=== PATIENT | male | born 1975 | race Caucasian/White ===

== ENCOUNTER 2024-02-14 20:52 | Emergency (ER) | payer MEDICAID, SELFPAY ==
[2024-02-14 20:56] VITALS: BP 162/59; PULSE 65; RESP 18; TEMP 36.6; O2SAT 99; BMI 25.1
--- NOTE | 2024-02-14 21:04 | ECG_ITS ---
[facility]14 Pat Name: Gil Sutton Department: Room: Gender: Male Floor Person: : 1975 Requested By: Gil Goodrich Order Number: [id number] Niya MD: Gene Garces M.D. Measurements Intervals [place] Rate: 63 P: 54 ID: [id number] QRS: 81 QRSD: 92 T: 67 QT: 407 QTc: 418 Interpretive Statements SINUS RHYTHM Non diagnostic ST changes No previous ECG available for comparison Electronically Signed On 02-14-2024 23:04:29 CDT by Gene Garces M.D. [email or web address]
--- NOTE | 2024-02-14 21:04 | XRR_ITS ---
PROCEDURE INFORMATION: Exam: XR Chest Exam date and time: 02/14/2024 9:30 PM Age: 48 years old Clinical indication: Dyspnea TECHNIQUE: Imaging protocol: Radiologic exam of the chest. Views: 1 view. COMPARISON: No relevant prior studies available. FINDINGS: Lungs: Unremarkable. No consolidation. Pleural spaces: Unremarkable. No pleural effusion. No pneumothorax. Heart/Mediastinum: Unremarkable. No cardiomegaly. Bones/joints: Unremarkable. XR/XR chest 1V portable [id number] IMPRESSION: No acute findings.
[2024-02-14 21:12] LABS: Basophils # 0.1 10^3/uL (0.0-0.1); Basophils % 0.8 %; Eosinophils # 0.1 10^3/uL (0.0-0.8); Eosinophils % 1.8 %; Hematocrit 46.1 % (37-53); Lymphocytes # 2.1 10^3/uL (0.8-4.8); Mean Corpuscular HGB Conc 34.3 g/dL (30-55); Mean Corpuscular Hemoglobin 31.9 pg (27-33); Mean Corpuscular Volume 93.1 fl (82-101); Mean Platelet Volume 8.9 fL (7.4-10.4); Monocytes # 0.5 10^3/uL (0.2-0.9); Monocytes % 6.4 %; Neutrophils # 4.38 10^3/uL (1.8-7.7); Neutrophils % 61.4 %; Nucleated Red Blood Cells % 0 %; Platelet Count 233 10^3/cmm (157-399); Red Blood Count 4.95 10^6/uL (3.85-5.65); Red Cell Distribution Width 12.2 % (12.1-15.1); White Blood Count 7.14 10^3/uL (3.29-11.43)
--- NOTE | 2024-02-14 21:16 | ED_ITS ---
HPI - Anxiety 2 General: Chief Complaint: Anxiety Stated Complaint: Sob, Dizzy, Cold Sweat Time Seen by Provider: 02/14/24 20:59 History of Present Illness: Patient presents to the ER from detention with symptoms similar to an anxiety attack. Patient states he got short of breath his heart started racing he has felt bad all over. Broke into a cold sweat. Patient states he is going through a divorce and has a lot on his mind. Patient denies any type of cardiac or health history, surgeries, allergies, medication use. Patient said he is feeling a lot better now. Review of Systems 2 General: Reports: 10 or more systems reviewed and unremarkable except in HPI and below Physical Exam 2 Const: COMMON NORMALS: no acute distress, average body habitus, patient oriented x3, no limitations, healthy appearing, alert and well nourished HENMT: COMMON NORMALS: normocephalic, atraumatic, hearing grossly normal bilaterally, external ears normal, Normal external nose present and moist oral mucous membranes HEAD & SCALP: normocephalic and atraumatic NOSE: Normal external nose present EXTERNAL EAR: Yes external ears normal Neck/C-Spine: COMMON NORMALS: no JVD Chest: COMMONS NORMALS: normal inspection of the chest and normal palpation of entire chest wall Resp: COMMON NORMALS: normal respiratory effort, No retractions, No use of accessory muscles and clear to auscultation bilaterally AUSCULTATION: clear to auscultation bilaterally Cardio: COMMON NORMALS: no JVD, regular rate, regular rhythm, S1 normal heart sound present, S2 normal heart sound present, No gallops present (Cardio), No clicks present (Cardio), No murmurs present (Cardio) and No rub (Cardio) R ATE: regular rate RHYTHM: regular rhythm HEART SOUNDS: S1 normal heart sound present and S2 normal heart sound present GI: COMMON NORMALS: Normal to inspection, nondistended, normoactive bowel sounds present, Soft to palpation, non-tender, No hepatosplenomegaly present and no masses PALPATION: Yes Soft to palpation and Yes No hepatosplenomegaly present Neuro: COMMON NORMALS: patient oriented x3 SENSORIUM/ORIENTATION: Yes alert Course 2 Vital Signs: Vital signs: Vital Signs Temperature 98 F 02/14/24 20:56 Pulse Rate 65 02/14/24 20:56 Respiratory Rate 18 02/14/24 20:56 Blood Pressure 162/59 02/14/24 20:56 Pulse Oximetry 99 02/14/24 20:56 MDM - Anxiety Medical Decision Making Patient physical exam laboratory evaluation chest x-ray, all essentially benign preliminary report by myself. Patient's symptoms are more typical of a panic attack and anxiety. Patient be discharged back to detention. Medical Records I reviewed the patient's medical records. Lab Data I reviewed the patient's lab results. 02/14/24 21:00 02/14/24 21:00 Laboratory Results WBC 7.14 10^3/uL (3.29-11.43) 02/14/24 21:00 RBC 4.95 10^6/uL (3.85-5.65) 02/14/24 21:00 Hgb 15.80 g/dL (11.27-16.99) 02/14/24 21:00 Hct 46.1 % (37-53) 02/14/24 21:00 MCV 93.1 fl (82-101) 02/14/24 21:00 MCH 31.9 pg (27-33) 02/14/24 21:00 MCHC 34.3 g/dL (30-55) 02/14/24 21:00 RDW 12.2 % (12.1-15.1) 02/14/24 21:00 Plt Count 233 10^3/cmm (157-399) 02/14/24 21:00 MPV 8.9 fL (7.4-10.4) 02/14/24 21:00 Neut % (Auto) 61.4 % 02/14/24 21:00 Lymph % (Auto) 29.0 % 02/14/24 21:00 [place] % (Auto) 6.4 % 02/14/24 21:00 Eos % (Auto) 1.8 % 02/14/24 21:00 Baso % (Auto) 0.8 % 02/14/24 21:00 Neut # (Auto) 4.38 10^3/uL (1.8-7.7) 02/14/24 21:00 Lymph # (Auto) 2.1 10^3/uL (0.8-4.8) 02/14/24 21:00 [place] # (Auto) 0.5 10^3/uL (0.2-0.9) 02/14/24 21:00 Eos # (Auto) 0.1 10^3/uL (0.0-0.8) 02/14/24 21:00 Baso # (Auto) 0.1 10^3/uL (0.0-0.1) 02/14/24 21:00 Nucleated RBC % (auto) 0 % 02/14/24 21:00 Nucleated RBCs # 0.0 /100WBC 02/14/24 21:00 Sodium 140 mmol/L (136-145) 02/14/24 21:00 Potassium 4.0 mmol/L (3.5-5.1) 02/14/24 21:00 Chloride 100 mmol/L (98-107) 02/14/24 21:00 Carbon Dioxide 31 mmol/L (22-29) H 02/14/24 21:00 Anion Gap 13.0 (5-19) 02/14/24 21:00 BUN 16 mg/dL (6-20) 02/14/24 21:00 Creatinine 0.9 mg/dL (0.7-1.2) 02/14/24 21:00 GFR Calculation 89.3 mL/min (90-130) L 02/14/24 21:00 Glucose 91 mg/dL (65-115) 02/14/24 21:00 Calculated Osmolality 291 mOsm/kg (285-295) 02/14/24 21:00 Calcium 9.4 mg/dL (8.5-10.5) 02/14/24 21:00 Total Bilirubin 0.3 mg/dL (0.15-1.2) 02/14/24 21:00 AST 29 U/L (0-40) 02/14/24 21:00 ALT 36 U/L (0-41) 02/14/24 21:00 Alkaline Phosphatase 127 U/L (40-130) 02/14/24 21:00 Troponin T Baseline < 6 ng/L (0-15) 02/14/24 21:00 Total Protein 7.5 g/dL (6.6-8.7) 02/14/24 21:00 Albumin 4.6 g/dL (3.5-5.2) 02/14/24 21:00 Globulin 2.9 g/dL (1.3-4.6) 02/14/24 21:00 All radiology interpretation(s) finalized by discharge Discharge Plan Discharge Patient Disposition: Home Clinical Impression: Panic attack Condition: Stable Discharge Orders: Discharge ED (Routine); Ordered 02/14/24 Ordered By: Gil Goodrich Patient Instructions: Panic Attack, Anxiety (ED) Activity Restrictions/Additional Instructions: Your exam in ER did not show any acute signs of heart or lung abnormalities. It is thought that you are probably having anxiety or panic attack. Please follow- up with your family practice physician or the physician provided to you by the detention within next 7 days for further evaluation and treatment. Coding Level of Care Code ED Tool Maker Bench for Arielle Longoria
[2024-02-14 21:27] LABS: Alanine Aminotransferase 36 U/L (0-41); Albumin Level 4.6 g/dL (3.5-5.2); Alkaline Phosphatase 127 U/L (40-130); Aspartate Amino Transferase 29 U/L (0-40); Blood Urea Nitrogen 16 mg/dL (6-20); Calcium 9.4 mg/dL (8.5-10.5); Carbon Dioxide 31 mmol/L (22-29); Chloride 100 mmol/L (98-107); Creatinine Clr Calc Pharmacy 108.1094; Globulin 2.9 g/dL (1.3-4.6); Glomerular Filtration Rate 89.3 mL/min (90-130); Glucose 91 mg/dL (65-115); Osmolality Calculated 291 mOsm/kg (285-295); Sodium 140 mmol/L (136-145); Total Bilirubin 0.3 mg/dL (0.15-1.2); Total Protein 7.5 g/dL (6.6-8.7); Troponin(5th) Baseline < 6 ng/L (0-15)
[2024-02-14 21:44] VITALS: BP 135/91; PULSE 65; O2SAT 100
[2024-02-14 21:54] VITALS: BP 135/91; PULSE 66; O2SAT 99
== END 2024-02-14 21:55 | disposition home or self-care (01) ==
PROVIDERS: Emergency Provider Emergency Medicine
DX: F41.0 Panic disorder [episodic paroxysmal anxiety] (principal); Z63.5 Disruption of family by separation and divorce
CPT/HCPCS: 71045; 80053; 84484; 85025; 93005; 99285

== ENCOUNTER 2024-09-28 14:49 | Emergency (ER) | payer SELFPAY ==
[2024-09-28 14:50] VITALS: BP 115/63; PULSE 68; RESP 17; TEMP 36.8; O2SAT 97; BMI 22.3
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
--- NOTE | 2024-09-28 15:15 | PC.NURSE ---
cleaned laceration with normal saline
[2024-09-28] MEDS: lidocaine-epi 1% 20 mL INJ 5 ML INJECTION (15:17)
[2024-09-28] MEDS: naproxen 500 mg Tablet PO (15:17)
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
[2024-09-28] MEDS: methocarbamol 750 mg Tablet 1500 MG PO (15:38)
[2024-09-28 15:40] VITALS: BP 110/82; PULSE 88; O2SAT 98
== END 2024-09-28 15:52 | disposition home or self-care (01) ==
PROVIDERS: Emergency Provider Emergency Medicine
DX: S20.229A Contusion of unspecified back wall of thorax, initial encounter (principal); Y04.2XXA Assault by strike against or bumped into by another person, initial encounter; S01.81XA Laceration without foreign body of other part of head, initial encounter
CPT/HCPCS: 12013; 72072; 99283; J9999

== ENCOUNTER → 2024-10-02 09:36 | Outpatient (BNVA) | payer SELFPAY | DX: F31.10 Bipolar disorder, current episode manic without psychotic features, unspecified (principal) | CPT/HCPCS: 80053 ==